=== PATIENT | male | born 1985 | race African-American/Black ===

== ENCOUNTER 2019-06-22 19:36 | Emergency (ER) | payer OTHER ==
[~2019-06-22] VITALS: Ht 170.2 cm; Wt 95.3 kg
[2019-06-22 20:08] VITALS: BP 130/89
[2019-06-22] MEDS ORDERED: SULF1TAB24 PO (20:22)
[2019-06-22] MEDS ORDERED: MELO7.5T29 PO (20:22)
--- NOTE | 2019-06-22 20:23 | PHYS DOC ---
Past History Past Medical History: Depression, Other Past Surgical History: No Surgical History Smoking: Non-smoker Alcohol Use: Occasionally Drug Use: None Adult General Chief Complaint Chief Complaint: SKIN PROBLEM HPI HPI Patient is a 34-year-old male presents complaining of a cyst in his lower abdomen. This has been present for the past 4 days, getting worse over time. It "popped" today with some purulent drainage. This improved the discomfort. Patient is here because he wants make sure doesn't get infected. He reports his tetanus vaccine status is up-to-date. Pain is mild to moderate. No fever. No nausea or vomiting. Palpation makes it worse.[] Review of Systems Review of Systems Constitutional: Denies fever or chills [] Eyes: Denies change in visual acuity, redness, or eye pain [] HENT: Denies nasal congestion or sore throat [] Respiratory: Denies cough or shortness of breath [] Cardiovascular: No chest pain or palpitations[] GI: Denies abdominal pain, nausea, vomiting, bloody stools or diarrhea [] : Denies dysuria or hematuria [] Musculoskeletal: Denies back pain or joint pain [] Integument: See history of present illness[] Neurologic: Denies headache, focal weakness or sensory changes [] Endocrine: Denies polyuria or polydipsia [] All other systems were reviewed and found to be within normal limits, except as documented in this note. Physical Exam Physical Exam Constitutional: Well developed, well nourished, no acute distress, non-toxic appearance. [] HENT: Normocephalic, atraumatic, bilateral external ears normal, oropharynx moist, no oral exudates, nose normal. [] Eyes: PERRLA, EOMI, conjunctiva normal, no discharge. [] Neck: Normal range of motion, no tenderness, supple, no stridor. [] Cardiovascular:Heart rate regular rhythm, no murmur [] Lungs & Thorax: Bilateral breath sounds clear to auscultation [] Abdomen: Bowel sounds normal, soft, no tenderness, no masses, no pulsatile masses. [] Skin: Warm, dry, patient has a draining boil in his suprapubic region, 1 cm transverse by 1/2 cm cephalad caudad. Minimal purulent drainage. No inguinal lymphadenopathy. No significant erythema.. [] Back: No tenderness, no CVA tenderness. [] Extremities: No tenderness, no cyanosis, no clubbing, ROM intact, no edema. [] Neurologic: Alert and oriented X 3, normal motor function, normal sensory function, no focal deficits noted. [] Psychologic: Affect normal, judgement normal, mood normal. [] Current Patient Data Vital Signs Vital Signs Date Time Temp Pulse Resp B/P (MAP) Pulse Ox O2 Delivery O2 Flow Rate FiO2 06/22/19 20:08 98.2 86 16 95 Room Air EKG EKG [] Radiology/Procedures Radiology/Procedures [] Course & Med Decision Making Course & Med Decision Making Pertinent Labs and Imaging studies reviewed. (See chart for details) ED course and medical decision making: Patient appears to have a draining cutaneous abscess. There is no evidence of systemic toxicity. No staph scalded skin syndrome, toxic epidermal necrolysis, nor Diaz-Carlos syndrome. Will start patient on oral outpatient antibiotics. Discussed plan with patient who voiced understanding. All questions were answered. Was discharged in improved condition.[] Dragon Disclaimer Dragon Disclaimer This electronic medical record was generated, in whole or in part, using a voice recognition dictation system. Departure Departure: Impression: Primary Impression: Boil Disposition: HOME, SELF-CARE Condition: IMPROVED Referrals: PCP,UNKNOWN (PCP) Patient Instructions: Abscess Additional Instructions: Keep the area clean and dry. Apply warm compresses at least 4 times a day for 15 minutes at a time. [facility] for a [facility] check. Take the medication as prescribed. Return to the ER if any concerns. Scripts Meloxicam (MELOXICAM) 7.5 Mg Tablet 7.5 MG PO DAILY for PAIN, #20 TAB Prov: CARROLL PEGUERO DO 06/22/19 Sulfamethoxazole/Trimethoprim (BACTRIM DS TABLET) 1 Each Tablet 1 TAB PO BID for boil, #20 TAB Prov: CARROLL PEGUERO DO 06/22/19 CARROLL PEGUERO DO Jun 22, 2019 20:23
== END 2019-06-22 20:28 | disposition home or self-care (01) ==
LOC: ER 19:36
DX: L02.221 Furuncle of abdominal wall (principal)
CPT/HCPCS: 99283

== ENCOUNTER → 2020-01-14 | Outpatient (CLI) | payer OTHER ==
[~2020-01-14] MED LIST: 0.9 % SODIUM CHLORIDE 10 ML VIAL ONE; IOHEXOL 300 MG/ML 50 ML VIAL. ONE; LIDOCAINE 1% PF 30 ML VIAL. ONE; MELO7.5T29 PO; SULF1TAB24 PO; methylPREDNISolone ACETATE 80 MG/ML VIAL. ONE
[2020-01-14 11:28] VITALS: BP 106/68
== END ==
LOC: SURG 10:13
PROVIDERS: ATTEND Anesthesiology Pain Medicine
DX: M54.16 Radiculopathy, lumbar region (principal); M19.90 Unspecified osteoarthritis, unspecified site; Z79.899 Other long term (current) drug therapy
CPT/HCPCS: 62323; J1040; J2001; Q9967